=== PATIENT | male | born 1965 | race Caucasian/White ===

== ENCOUNTER 2019-03-10 09:07 | Day surgery (SDC) | payer OTHER ==
[2019-03-09 17:19] VITALS: BMI 44.4
[2019-03-10] VITALS (19 sets, daily range): BP systolic 114–152; BP diastolic 61–89; PULSE 64–76; RESP 16–26; Ht 162.6 cm; Wt 116.5 kg
[~2019-03-10] VITALS: Ht 162.6 cm; Wt 116.5 kg
[~2019-03-10 09:07] MED LIST: ATEN50TA PO; LOSA50TA14 PO; METF-849 PO
[2019-03-10] MEDS ORDERED: LIDOCAINE 1%/EPI 30 ML INJ ONE (10:53)
--- NOTE | 2019-03-10 10:53 | HPN ---
Date/Time of Note Date/Time of Note DATE: 03/10/19 TIME: 10:53 Interval H&P Admission Note Pt. seen H&P reviewed: No system changes APURVA SERNA M.D. Mar 10, 2019 10:53
[2019-03-10] MEDS ORDERED: NEOMYC/POLYMYX/BACIT 30 GM OINT ONE (10:54)
[2019-03-10] MEDS ORDERED: COCAINE 4% 4 ML TOP ONE (10:54)
--- NOTE | 2019-03-10 10:54 | PREAC ---
Date/Time of Note Date/Time of Note DATE: 03/10/19 TIME: 10:52 Anesthesia Eval and Record Evaluation Time Pre-Procedure Interview DATE: 03/10/19 TIME: 10:52 Age 54 Sex male NPO: 8 hrs Preoperative diagnosis deviated septum, nasal obstruction Planned procedure laser turbinoplasty Past Medical History Past Medical History: Includes Cardio: HTN Endo: Diabetes GI: Obesity Surgery & Anesthesia Issues No known issue Meds Anticoagulation: No Beta Liya within 24 hr: Yes Reported Medications Losartan Potassium* (Losartan Potassium*) 50 Mg Tablet, 50 MG PO QHS, TAB 03/10/19 Metformin* (Glucophage*) 500 Mg Tab, 500 MG PO WITH BREAKFAST, #30 TAB 03/10/19 Atenolol* (Atenolol*) 50 Mg Tablet, 50 MG PO DAILY, #30 TAB 03/10/19 Current Medications Sodium Chloride 1,000 ml @ 25 mls/hr Q24H IV ; Start 03/10/19 at 11:00 Meds reviewed: Yes Allergies Coded Allergies: No Known Drug Allergies (Verified Allergy, Unknown, 03/10/19) Allergies Reviewed: Yes Labs/Studies Labs Reviewed: Reviewed by anesthesiologist test: N/A Pre-procedure Exam Last vitals Vital Signs Date Temp Pulse Resp B/P (MAP) Pulse Ox O2 O2 Flow FiO2 Time Delivery Rate 03/10/19 98.1 64 16 152/89 16 Room Air 10:34 (110) Airway: Adequate mouth opening, Adequate thyromental dist Mallampati: Mallampati II Teeth: Normal Lung: Normal Heart: Normal ASA Physical Status ASA physical status: 2 Emergency: None Planned Anesthetic General/MAC: ETT Planned Pain Management Parenteral pain med Pre-operative Attestations Prior to commencing anesthesia and surgery, the patient was re-evaluated, there was verification of: *The patient's identity *The results of appropriate recent lab work and preoperative vital signs *The above evaluation not changing prior to induction *Anesthetic plan, risk benefits, alternative and complications discussed with patient/family; questions answered; patient/family understands, accepts and wishes to proceed. SAMUEL HERNANDEZ Mar 10, 2019 10:54
[2019-03-10] MEDS ORDERED: SOD CHLORIDE 0.9% 1,000 ML IV SCH (11:00)
[2019-03-10] MEDS ORDERED: SEVOFLURANE 15 MIN ONE (11:00)
[2019-03-10] MEDS ORDERED: PROPOFOL 20 ML ONE (11:06)
[2019-03-10] MEDS ORDERED: LIDOCAINE 2% (SDV) 5 ML INJ ONE (11:07)
[2019-03-10] MEDS ORDERED: ROCURONIUM 50 MG INJ ONE (11:07)
[2019-03-10] MEDS ORDERED: CEFAZOLIN 1 GM INJ ONE (12:28)
[2019-03-10] MEDS ORDERED: DEXAMETHASONE 4 MG/ML 5 ML INJ ONE (12:28)
[2019-03-10] MEDS ORDERED: ONDANSETRON 4 MG INJ ONE (12:28)
[2019-03-10] MEDS ORDERED: NEOSTIGMINE 3 MG/3 ML SYRINGE ONE (13:03)
[2019-03-10] MEDS ORDERED: GLYCOPYRROLATE 0.4 MG INJ ONE (13:03)
--- NOTE | 2019-03-10 13:07 | OPR ---
Date/Time of Note Date/Time of Note DATE: 03/10/19 TIME: 13:03 Operative Report Procedure Date: Mar 10, 2019 Preoperative Diagnosis 1. SEPTAL DEVIATION. 2. BILATERAL NASAL TURBINATE TISSUE HYPERTROPHY. 3. CHRONIC NASAL OBSTRUCTION. Postoperative Diagnosis SAME. Operation/Procedure Performed 1. SEPTOPLASTY VIA [facility]. 2. BILATERAL KTP 532 NM LASER TURBINOPLASTY VIA [facility]. Surgeon see signature line Larriman NONE. Anesthesia Type: general (WITH OT TUBE INTUBATIUON. 4% 4CC COCCAINE TOPICAL. 10 CC 1% LIDOCAINE WITH EPI 1:100,000 SOLN.) Estimated Blood Loss: 0 - 10 ml's Transfusion none Specimen SEPTAL CARTILAGE AND BONE. Grafts/Implants none Tubes/Drains NONHE. Complications none Pt Condition Post Procedure: stable Disposition: PACU Indications TO IMPROVE BREATHING. Procedure Description SEE DICTATED OPERATIVE REPORT. APURVA SERNA M.D. Mar 10, 2019 13:07
--- NOTE | 2019-03-10 13:08 | PDOCDIS ---
Discharge Instructions DIAGNOSIS Discharge Diagnosis 1. SEPTAL DEVIATION. 2. BILATERAL NASAL TURBINATE TISSUE HYPERTROPHY. 3. CHRONIC NASAL OBSTRUCTION. CONDITION [id number] Patient Condition: [id number] Good HOME CARE INSTRUCTIONS: [id number] Diet Instructions: Stbas1s Regular ACTIVITY: [id number] Activity Restrictions: [id number] Slowly Increase Activity Rest between Activity Avoid heavy lifting No Sexual Activity Do not operate Power Tool Avoid Heavy Housework [id number] Bathing Restrictions: [id number] Tub Bath FOLLOW UP/APPOINTMENTS Follow-up Plan MY OFFICE IN 2 WEEKS. SCHOOL/WORK RELEASE May return to School/Work on: Mar 17, 2019 May return to School/Work with: No Restrictions APURVA SERNA M.D. Mar 10, 2019 13:08
--- NOTE | 2019-03-10 13:17 | PAC ---
Date/Time of Note Date/Time of Note DATE: 03/10/19 TIME: 13:17 Post-Anesthesia Notes Post-Anesthesia Note Last documented vital signs Vital Signs Date Temp Pulse Resp B/P (MAP) Pulse Ox O2 O2 Flow FiO2 Time Delivery Rate 03/10/19 98.1 64 16 152/89 16 Room Air 1317 (110) Activity: WNL Respiratory function: WNL Cardiovascular function: WNL Mental status: Baseline Pain reasonably controlled: Yes Hydration appropriate: Yes Nausea/Vomiting absent: Yes SAMUEL HERNANDEZ Mar 10, 2019 13:17
[2019-03-10] MEDS ORDERED: DIPHENHYDRAMINE 50 MG INJ IV PRN (13:30)
[2019-03-10] MEDS ORDERED: EPHEDrine 25 MG/5 ML SYG IV PRN (13:30)
[2019-03-10] MEDS ORDERED: OXYCODONE/ACETAMINOPHEN (5/325) TAB PO PRN ×2 (13:30)
[2019-03-10] MEDS ORDERED: MIDAZOLAM 1 MG/ML 2 ML INJ IV PRN (13:30)
[2019-03-10] MEDS ORDERED: ONDANSETRON 4 MG INJ IV PRN (13:30)
[2019-03-10] MEDS ORDERED: FENTAnyl 50 MCG/ML VIAL IV PRN ×3 (13:30)
[2019-03-10] MEDS ORDERED: HYDROmorphONE 1 MG/5 ML IV SYRINGE IV PRN ×3 (13:30)
[2019-03-10] MEDS ORDERED: hydrALAzine 20 MG INJ IV PRN (13:30)
[2019-03-10] MEDS ORDERED: METOCLOPRAMIDE 10 MG INJ IV PRN (13:30)
[2019-03-10] MEDS ORDERED: LABETALOL HCL 20MG INJ IV PRN (13:30)
[2019-03-10] MEDS ORDERED: MEPERIDINE 25 MG INJ IV PRN (13:30)
[2019-03-10] MEDS ORDERED: ALBUTEROL 0.083% (NEB) 2.5 MG/3 ML AMP HHN PRN (13:30)
--- NOTE | 2019-03-10 16:16 | OPR ---
DATE OF OPERATION: 03/10/2019 SURGEON: Eric Tirado MD PREOPERATIVE DIAGNOSES: 1. Septal deviation. 2. Bilateral nasal turbinate tissue hypertrophy. 3. History of chronic nasal obstruction. POSTOPERATIVE DIAGNOSES: 1. Septal deviation. 2. Bilateral nasal turbinate tissue hypertrophy. 3. History of chronic nasal obstruction. PROCEDURES PERFORMED: 1. Septoplasty using submucosal resection technique. 2. Bilateral KTP 532 nanometer laser turbinoplasty procedure using submucosal resection technique. ESTIMATED BLOOD LOSS: Less than 20 mL. COMPLICATIONS: None. SPECIMENS SENT TO LABORATORY: Septal cartilage and bone. FINDINGS DURING PROCEDURE: Left anterior midseptal deviation with encroachment on the left inferior turbinate. There were also papillomatous degenerative mucosal changes of the nasal cavity. There ar e no polyps seen during the procedure. There are also no malignancies present. ANESTHETIC USED: General anesthesia with orotracheal tube intubation. The patient also had topical cocaine 4% using 4 mL on cottonoids. The patient also had 10 mL of 1% lidocaine with epinephrine 1:1 00,000 solution injected into the inferior turbinates bilaterally. The patient was also given Ancef before the case was begun. INDICATIONS: Mr. Larry Garcia is a 54-year-old male who has a history of chronic nasal obs truction treated with multiple antibiotics and decongestant therapy. The patient also had topical na ekaterina steroids which have met with failure. The patient's CT scan evaluation found to have a left nasa l septal deviation with chronic nasal obstruction. The patient is currently scheduled for today's pr ocedure which include a septoplasty and bilateral laser turbinoplasty procedures as indicated. Risks , benefits and alternatives have been explained thoroughly to Mr. Garcia. They include infections, bleeding, possible failure of procedure as well as possible septal perforation. He also understands the possible risks of reactions to general and local anesthetic agents that will be used during the p rocedure. He signed a consent once his questions were answered. DESCRIPTION OF PROCEDURE: The patient was taken to the operating room, placed on the surgical table in supine position, made comfortable by the anesthesiologist. The patient had EKG, saturation monito r and blood pressure cuff applied. At this point, the patient was then given mask inhalation agents, placed asleep gently. The patient then was successfully orotracheally intubated with orotracheal cu ffed tube after given IV injection. The patient's airway was maintained and controlled, ventilation through the orotracheal tube. The patient's vital signs were noted to be stable as the eyes were tap ed for protection. At this point, a brief time-out with patient identification and procedure was ent ertained, and all were in agreement. At this point, the patient's nasal cavity was inspected and fou nd to have left nasal septal deviation as injections with 1% lidocaine with epinephrine 1:100,000 inj ected into the floor of the nose and the vomer region as well as the inferior turbinates bilaterally. The septum was also injected with this solution. Cocaine 4% using 4 mL was then placed inside the nose on cottonoids the anterior ethmoid behind the middle turbinate areas. At this point, the patien t was draped out in usual sterile fashion using a split sheet. Wet towels were placed around the ranjeet al cavity and the draping material in preparation for laser use. All personnel in the operating room were asked to place safety goggles on for their protection. At this point, a KTP 532 nanometer lase r was then brought to the operating room field with a straight handheld handpiece and suction attachm ent. At this point, the foot pedal was used to activate the laser as the cottonoids were removed fro m the intranasal cavity. At this point, the laser was then made ready at 8 norman continuous power. The inferior turbinate on the left side was then reduced in the submucosal space by firing the laser through a stabbing technique into the submucosal space. The smoke was evacuated through the evacuato r as the inferior turbinate on the left side was noted to shrink in size. A nasal speculum was then used to outfracture the inferior turbinate towards the medial wall of the maxillary sinus. This gave greater patency of the nasal cavity. The right inferior turbinate was done in a similar fashion and it too was reduced the anterior 2/3 of the turbinate in the submucosal space. At this point, a Fraz ier suction was used to remove blood from the nasal cavity. At this point, a septoplasty procedure w as then performed after termination of the laser procedure. A hemitransfixion incision was created o n the left side of the nose with #15 -Darrell sharp stainless steel blade. This incision was ho ied out down in a vertical direction just incising the perichondrium of the cartilage. At this point , a Ronnell elevator was used to elevate a mucoperichondrial flap on the left side with care not to te ar the flaps. The cartilage was then incised totally with care not to incise the right mucoperichond rial lining. The Ronnell elevator was then advanced to the right side and mucoperichondrial flap was elevated on that side, skeletonizing the inferior aspect of the cartilage which was deviated to the l eft. At this point, the bony cartilage was then removed with the Lillian forceps between the flaps until the septum was noted to be in the midline. After the septum was in the midline, hemitransfixi on incision was closed with a 4-0 Vicryl suture in simple interrupted fashion with good mucosal edge closure. Plication suture was then placed between the flaps to keep the flap in the midline using th e same 4-0 Vicryl suture. After the septum was in the midline and no further bleeding, the nasal cav ity was suctioned of blood-tinged secretions. Bacitracin ointment was then placed of the nose with p acking and a mustache dressing beneath the nose to catch any drainage. This ended the procedure. Sp onge count and instrument counts were correct x3. There were no complications during the procedure. Dictated By: ERIC PAPPAS/MARILEE Conf#: [id number] DID#: [id number]
== END 2019-03-10 15:10 | disposition home or self-care (01) ==
LOC: SDS 09:07
PROVIDERS: ATTEND Otolaryngology Otolaryngology/Facial Plastic Surgery
DX: J34.2 Deviated nasal septum (principal); J34.3 Hypertrophy of nasal turbinates; I10 Essential (primary) hypertension; E11.9 Type 2 diabetes mellitus without complications; Z79.84 Long term (current) use of oral hypoglycemic drugs
CPT/HCPCS: 30140; 30520; 71045; 82962; 88300; J0690; J1100; J1170; J2405; J2710; J3010